=== PATIENT | male | born 1985 ===

== ENCOUNTER 2020-11-27 09:06 | Emergency (ER) | payer OTHER, BC ==
[2020-11-27] MEDS ORDERED: Ibuprofen 800 MG Tab PO ONE (09:28)
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
[2020-11-27 12:23] VITALS: BP 141/77; PULSE 74
== END 2020-11-27 12:28 | disposition home or self-care (01) ==
LOC: MW.ED 09:06
DX: M54.5 Low back pain (principal); E78.00 Pure hypercholesterolemia, unspecified; Z79.899 Other long term (current) drug therapy; V49.9XXA Car occupant (driver) (passenger) injured in unspecified traffic accident, initial encounter
CPT/HCPCS: 72100; 99284; A9270; 99282